=== PATIENT | male | born 1990 | race Caucasian/White ===

== ENCOUNTER 2017-11-12 16:40 | Emergency (ER) | payer OTHER ==
[~2017-11-12] VITALS: Ht 177.8 cm; Wt 111.1 kg
[2017-11-12 19:19] VITALS: BP 139/82
== END 2017-11-12 18:28 | disposition home or self-care (01) ==
LOC: ED 16:40
DX: S93.601A Unspecified sprain of right foot, initial encounter (principal); W20.8XXA Other cause of strike by thrown, projected or falling object, initial encounter; Y93.89 Activity, other specified; Y99.8 Other external cause status; Y92.89 Other specified places as the place of occurrence of the external cause